=== PATIENT | male | born 1990 | race Caucasian/White ===

== ENCOUNTER 2016-12-06 19:04 | Emergency (ER) | payer SELFPAY ==
[~2016-12-06] VITALS: Ht 172.7 cm; Wt 55.5 kg
[2016-12-06 19:10] VITALS: Ht 172.7 cm; Wt 55.5 kg
--- NOTE | 2016-12-06 19:41 | DIAGNOSTIC IMAGING REPORT ---
RIGHT FOOT MIN 3 VIEWS ROUTINE CLINICAL HISTORY: R foot pain Right pain COMPARISON: None. DISCUSSION: The bones and joint spaces appear intact. There is no evidence of fracture, dislocation or bony disease. There is no evidence for soft tissue swelling. IMPRESSION: Negative study. The above report was generated using voice recognition software. It may contain grammatical, syntax or spelling errors. Electronically signed by: Sabas Vance M.D. 12/06/2016 7:40 PM Dictated Date/Time: 12/06/2016 7:39 PM
[2016-12-06] MEDS ORDERED: IBUPROFEN 800 MG TAB PO STA (19:58)
--- NOTE | 2016-12-06 20:04 | EMERGENCY ROOM VISIT NOTE ---
History First contact with patient: 19:13 Chief Complaint: FOOT PAIN Stated Complaint: RT FOOT PAIN, HURTS TO PUT PRESSURE ON History of Present Illness The patient is a 26 year old male who presents to the Emergency Room with complaints of persistent right foot pain after a chair fell onto his foot around lunchtime. He reports persistent pain with weightbearing, rating his discomfort a 7 out of 10. He denies any pain extending into the ankle or leg. Denies paresthesias or numbness of the right foot or toes. He denies any prior history of right foot fractures or injuries. Review of Systems 10 system review was performed and was negative except for pertinent positives and negatives as indicated in history of present illness Past Medical/Surgical History Medical Problems: (1) Asthma (2) Bronchitis Family History Diabetes mellitus FH: cancer Social History Smoking Status: Former Smoker Alcohol Use: occasionally Marital Status: in relationship Housing Status: lives with family Occupation Status: employed Current/Historical Medications No Active Prescriptions or Reported Meds Physical Exam Vital Signs Date Time Temp Pulse Resp B/P (MAP) Pulse Ox O2 Delivery O2 Flow Rate FiO2 12/06/16 19:10 36.7 97 16 130/75 97 Room Air Physical Exam CONSTITUTIONAL: Healthy and well nourished. Alert and oriented X 3 with positive affect. She appears in moderate discomfort from pain. HEENT: Normocephalic, atraumatic. Pupils equal, round and reactive. NECK: Full active range of motion without discomfort. MUSCULOSKELETAL: Examination shows soft tissue edema over the dorsal lateral aspect of the midfoot. He has generalized discomfort to palpation over the lateral foot region. No tenderness to palpation through the phalanges or ankle region. Pedal pulses are intact. INTEGUMENTARY: No rash or other significant dermatologic conditions noted. NEUROLOGIC: Right foot and toes are sensory intact. Medical Decision & Procedures ER Provider Diagnostic Interpretation: My interpretation of right foot x-rays does not show any obvious fractures or dislocations. Radiologist report is as follows: RIGHT FOOT MIN 3 VIEWS ROUTINE CLINICAL HISTORY: R foot pain Right pain COMPARISON: None. DISCUSSION: The bones and joint spaces appear intact. There is no evidence of fracture, dislocation or bony disease. There is no evidence for soft tissue swelling. IMPRESSION: Negative study. ED Course Patient history and physical exam were performed. Nurse's notes were reviewed. Vital signs were reviewed and normal. The patient had gone to x-ray prior to my exam. X-rays of the right foot were normal. The patient's father reports that he has crutches at home that will fit him. The patient was provided an ice pack, and instructed to ice and elevate the foot for swelling and pain. The patient was administered ibuprofen 800 mg in the emergency department, and encouraged to alternate ibuprofen and Tylenol for baseline pain relief. The patient was instructed to follow-up with orthopedics if symptoms are not improving within the next 7 days. The patient voiced understanding of all discharge instructions, was happy with plan of care, and rated his pain a 7 out of 10 at the time of discharge, when he was administered the ibuprofen. Medical Decision Blood Pressure Screening Patient's blood pressure: Normal blood pressure Impression Primary Impression: Contusion of right foot Departure Information Prescriptions No Active Prescriptions or Reported Meds Referrals Nova Laguerre C.R.N.P (PCP) Patient Instructions [facility] Problem Qualifiers Primary Impression: Contusion of right foot Encounter type: initial encounter Qualified Codes: S90.31XA - Contusion of right foot, initial encounter
[2016-12-06 20:30] VITALS: BP 124/71; PULSE 91; TEMP 36.7; O2SAT 99
== END 2016-12-06 20:30 | disposition home or self-care (01) ==
LOC: C.EDB 19:05 → C.EDD 20:30
DX: S90.31XA Contusion of right foot, initial encounter (principal); W22.8XXA Striking against or struck by other objects, initial encounter; J45.909 Unspecified asthma, uncomplicated; Z87.891 Personal history of nicotine dependence; Z83.3 Family history of diabetes mellitus